=== PATIENT | male | born 1935 | race Caucasian/White ===

== ENCOUNTER → 2019-03-30 11:08 | Outpatient (CLI) | payer MEDICARE, BC, OTHER, SELFPAY ==
--- NOTE | 2019-03-30 | DI.RAD.S_ITS ---
PROCEDURE: XR ABDOMEN 1V INDICATIONS: XR ABDOMINAL PAIN TECHNIQUE: One view of the abdomen acquired. COMPARISON: None. FINDINGS: Surgical changes and devices: Right upper quadrant surgical clips, probable prior cholecystectomy. Bowel: Bowel gas pattern is normal. Soft tissues: No suspicious abdominal calcifications. Visualized solid organ contours appear normal in size. Bones: No suspicious bony lesions. IMPRESSION: Nonspecific bowel gas pattern, no free air found. Presumed prior cholecystectomy. Dictated by: Jos Ramirez M.D. on 03/30/2019 at 14:10 Approved by: Jos Ramirez M.D. on 03/30/2019 at 14:10
== END ==
PROVIDERS: Family Provider Internal Medicine; PCP Internal Medicine; Visit Provider Student in an Organized Health Care Education/Training Program
DX: R10.9 Unspecified abdominal pain (principal); T85.611A Breakdown (mechanical) of intraperitoneal dialysis catheter, initial encounter
CPT/HCPCS: 74018